=== PATIENT | female | born 1965 | race Caucasian/White ===

== ENCOUNTER 2018-03-17 06:38 | Inpatient (IN) | payer OTHER ==
--- NOTE | 2018-03-08 11:50 | HP ---
HISTORY AND PHYSICAL: DATE OF SURGERY: 03/17/18 DATE OF OFFICE VISIT: 03/04/18 SURGEON: Frieda Clinton MD * (DICTATED BY NII HOWARD) PROCEDURE: Right total knee arthroplasty. CHIEF COMPLAINT: Right knee pain. HISTORY OF PRESENT ILLNESS: Ms. Zepeda is a 53-year-old female with end- stage osteoarthritis of her right knee. She has failed conservative management and elected to proceed with a right total knee arthroplasty, which is scheduled for 03/17/[address] Clinton. PAST MEDICAL HISTORY: 1. Hypertension. 2. Diabetes. 3. History of hepatitis C. 4. Asthma. 5. Sleep apnea. PAST SURGICAL HISTORY: x3, lumbar diskectomy, cholecystectomy, and right knee arthroscopy. CURRENT MEDICATIONS: 1. Metformin 500 mg daily. 2. Ventolin HFA inhaler as needed. 3. Meloxicam daily. 4. Lisinopril/hydrochlorothiazide 20/12.5 mg daily. 5. Aleve as needed. 6. Multivitamin. ALLERGIES: No known drug allergies. FAMILY HISTORY: Stroke, coronary artery disease, asthma, and hypertension. SOCIAL HISTORY: She is a 53-year-old female. She lives with her boyfriend. She does not smoke or use drugs. Uses occasional alcohol. REVIEW OF SYSTEMS: A complete 14-point review of systems was reviewed with patient. It was positive for asthma, diabetes, and history of hepatitis C approximately 20 years ago. She denies history of DVT, PE, or anesthesia problems. PHYSICAL EXAMINATION GENERAL: She is well developed, well nourished, in no acute distress. VITAL SIGNS: She stands 5 feet 4 inches tall, weighs 235 pounds. Her blood pressure is 140/82, heart rate is 74. HEENT: Normocephalic, atraumatic. NECK: Supple. No palpable lymph nodes. PULMONARY: Lungs are clear to auscultation bilaterally. CARDIO: Regular rate and rhythm. Strong S1 and S2. ABDOMEN: Soft, nontender, and nondistended. NEUROLOGICAL: She is alert and oriented x3. Cranial nerves II through XII are intact. MUSCULOSKELETAL: Right lower extremity, the skin is intact. There are no open wounds or abrasions. There is some moderate joint effusion and tenderness over the medial and lateral joint line. Range of motion 10 to 120 degrees with patellofemoral crepitus. 5/5 lower extremity strength. 2+ dorsalis pedis pulses and intact sensation. ASSESSMENT AND PLAN: Ms. Zepeda is a 53-year-old female with end-stage osteoarthritis of her right knee. She has failed conservative management and elected to proceed with a right total knee arthroplasty, which is scheduled for 03/17/[address] Clinton discussed the risks and benefits of the surgery at today's visit. All of her questions were answered. She will follow up with Dr. Clinton 2 weeks after the surgery. NII HOWARD [id number]/[facility] #: [id number] [place]
[~2018-03-17 06:38] MED LIST: Buffered Lidocaine 0.9% SYRIN* 5 ML/SYR SYRINGE INTRADERM ONE; Famotidine TAB* 20 MG PO ONE; Metoclopramide IV* 5 MG/ML 2 ML VIAL IV SLOW PU ONE; Sodium Citrate/Citric Acid* 15 ML UDC PO ONE
[2018-03-17] MEDS ORDERED: ceFAZolin 2 GM PREMIX (*) 2 GM/50 ML BAG IVPB ONE (07:01)
[2018-03-17] MEDS ORDERED: Metoclopramide TAB* 10 MG ONE (07:01)
[2018-03-17] MEDS ORDERED: Famotidine TAB* 20 MG ONE (07:01)
[2018-03-17] MEDS ORDERED: Sodium Citrate/Citric Acid* 15 ML UDC ONE (07:01)
[2018-03-17] MEDS ORDERED: fentaNYL* 50 MCG/ML 2 ML VIAL (100 MCG VIAL) ONE (07:18)
[2018-03-17] MEDS ORDERED: Bupivacaine 0.5%* 50 ML VIAL ONE (07:18)
[2018-03-17] MEDS ORDERED: Midazolam* 1 MG/ML 2 ML VIAL (2 MG) ONE ×3 (07:18→09:46)
[2018-03-17] MEDS ORDERED: Metoclopramide IV* 5 MG/ML 2 ML VIAL ONE (07:38)
[2018-03-17] MEDS ORDERED: Morphine PF AMP (0.5MG/ML)* 5 MG/10 ML AMP ONE (07:45)
[2018-03-17] MEDS ORDERED: oxyCODONE TAB* 5 MG TAB PO PRN ×2 (08:21→08:22)
[2018-03-17] MEDS ORDERED: Ondansetron INJ* 2 MG/ML VIAL IV PRN ×2 (08:21→08:22)
[2018-03-17] MEDS ORDERED: Naloxone* 0.4 MG/ML 1 ML VIAL IV PRN ×2 (08:21→08:22)
[2018-03-17] MEDS ORDERED: Acetaminophen IV 1GM/100ML * 1,000 MG/100 ML VIAL IVPB ONE (08:21)
[2018-03-17] MEDS ORDERED: PROCHLORPERAZINE INJ 5 MG/ML 2 ML VIAL IV PRN (08:21)
[2018-03-17] MEDS ORDERED: diPHENhydraMINE IV* 50 MG/ML 1 ml VIAL (BENADRYL) IV PRN ×2 (08:21→08:22)
[2018-03-17] MEDS ORDERED: oxyCODONE/Acetamin 5/325 MG* TAB PO PRN ×2 (08:21→08:22)
[2018-03-17] MEDS ORDERED: HYDROmorphone INJ* 2 MG/ML CARPUJECT SYRINGE IV PRN (08:21)
[2018-03-17] MEDS ORDERED: fentaNYL* 50 MCG/ML 2 ML VIAL (100 MCG VIAL) IV PRN (08:21)
[2018-03-17] MEDS ORDERED: Acetaminophen TAB* 325 MG PO PRN ×3 (08:22→20:00)
[2018-03-17] MEDS ORDERED: Scopolamine 1.5 mg* PATCH TRANSDERM PRN (08:22)
[2018-03-17] MEDS ORDERED: EPHEDrine (Pressors)* 50 MG/ML VIAL IV PUSH PRN (08:26)
[2018-03-17] MEDS ORDERED: Lidocaine 2% PF * 5 ML VIAL ONE (08:29)
[2018-03-17] MEDS ORDERED: Propofol* 500 MG/50 ML BTL ONE (08:29)
[2018-03-17] MEDS ORDERED: Ketorolac INJ* 30 MG/ML 1 ML VIAL ONE (08:30)
[2018-03-17] MEDS ORDERED: Bupivacaine 0.5% PF 10 ML VIAL INJ ONE (08:30)
[2018-03-17] MEDS ORDERED: Ondansetron INJ* 2 MG/ML VIAL ONE (08:30)
[2018-03-17] MEDS ORDERED: Sterile Water for Inj* 10 ML ONE (08:30)
[2018-03-17] MEDS ORDERED: EPHEDrine (Pressors)* 50 MG/ML VIAL ONE (08:30)
[2018-03-17] MEDS ORDERED: Lidocaine 2% PF* 10 ML AMP ONE (08:30)
[2018-03-17] MEDS ORDERED: Ropivacaine* 300 MG in NS 0.9% 250 ML* 240 ML EPIDURAL SCH (09:00)
[2018-03-17] MEDS ORDERED: Magnesium Hydroxide LIQ* 30 ML UDC PO PRN (10:47)
[2018-03-17] MEDS ORDERED: Cyclobenzaprine TAB* 10 MG PO PRN (10:47)
[2018-03-17] MEDS ORDERED: diPHENhydraMINE IV* 50 MG/ML 1 ml VIAL (BENADRYL) ONE (10:53)
[2018-03-17] MEDS ORDERED: Acetaminophen IV 1GM/100ML * 100 ML ONE (10:56)
[2018-03-17] MEDS ORDERED: Albuterol HFA INHALER* 8 gm MDI INH PRN (10:57)
[2018-03-17] MEDS ORDERED: Nalbuphine* 20 MG/ML 1 ML VIAL ONE (11:19)
[2018-03-17] MEDS ORDERED: Dextrose 50% Syringe 50 ML* 25 GM/50 ML SYRINGE IV PUSH PRN (11:59)
[2018-03-17] MEDS ORDERED: Nalbuphine* 20 MG/ML 1 ML VIAL IV PRN (12:21)
--- NOTE | 2018-03-17 13:06 | RAD ---
INDICATION: Right total knee replacement COMPARISON: Preoperative film October 14, 2017 TECHNIQUE: Portable AP and crosstable lateral views were obtained. FINDINGS: There is interval right knee arthroplasty. The tibial component appears well seated. The femoral component may not be fully seated. There is a lucency along the superior margin. There is a nondisplaced, vertically oriented, periprosthetic fracture of the distal femoral metadiaphysis. There is no overlying cooling jacket. There are postsurgical soft tissue changes. IMPRESSION: NONDISPLACED PERIPROSTHETIC FRACTURE DISTAL FEMUR. THERE IS ALSO SOME CONCERN THAT THE FEMORAL COMPONENT IS NOT FULLY SEATED. FINDINGS CALLED TO THE OR.
--- NOTE | 2018-03-17 16:41 | RAD ---
Indication: Periprosthetic RIGHT femur fracture. RIGHT total knee replacement. Comparison: March 17, 2018 radiographs immediate postop. October 14, 2017 radiographs. Technique: Noncontrast CT RIGHT knee. Multiplanar reformation. Report: RIGHT total knee prosthesis in place. Based on correlation with the radiograph of the same date the femoral component does not appear fully seated against the distal metaphysis osteotomy site. There is incomplete sagittally oriented nondisplaced periprosthetic fracture extending from the distal diaphysis metaphysis junction of the femur to the level of the prosthesis involving the posterior cortex and subjacent medullary bone corresponding with the radiographic finding. Midline anterior surgical incision site. Typical immediate postoperative subcutaneous and intra-articular gas. Only minimal joint effusion. Surgical drain at the suprapatellar recess. IMPRESSION: 1. Based on correlation with the radiograph of the same date the femoral component does not appear fully seated against the distal metaphysis osteotomy site. 2. Incomplete sagittally oriented nondisplaced periprosthetic fracture extending from the distal diaphysis metaphysis junction of the femur to the level of the prosthesis involving the posterior cortex and subjacent medullary bone corresponding with the radiographic finding.
[2018-03-17] MEDS: ceFAZolin 1 GM in Dextrose (*) 1 GM/50 ML BAG IVPB SCH ×2 (16:45→23:53)
[2018-03-17] MEDS ORDERED: Warfarin TAB(*) 6 MG PO ONE (17:00)
[2018-03-17] MEDS ORDERED: metFORMIN* 500 MG TAB PO SCH (18:00)
[2018-03-17] MEDS: Insulin LISPRO* 1 UNITS UNIT SUBCUT SCH ×2 (18:11→21:42)
--- NOTE | 2018-03-17 20:12 | CONS ---
CONSULTATION REPORT: DATE OF CONSULT: 03/17/18 ATTENDING PHYSICIAN: Dr. Seymour (report dictated by Jyothi Christensen, LAUREN). REFERRING PHYSICIAN: Dr. Clinton. REASON FOR CONSULT: Co-medical management. HISTORY OF PRESENT ILLNESS: Ms. Zepeda is a 53-year-old female with end- stage osteoarthritis of her right knee, who was admitted today on 03/17/18 for a right total knee arthroplasty with Dr. Clinton. Hospital Medicine was asked to consult and co-medical manage. The patient has a past medical history of hypertension, type 2 diabetes, asthma, sleep apnea, and history of hepatitis C. The patient was seen and evaluated in the PACU where she is sitting up on the PACU stretcher, alert and oriented x3 with some mild noted drowsiness. She answers questions appropriately. She denies any current pain at this moment. She reports that she was recently diagnosed with diabetes within the last couple of months as it was identified during her preop evaluation. She feels that she has been tolerating the metformin well. She is to have close followup with her primary care provider in regards to this new diagnosis. In regards to the patient's hypertension, she reports that this is well controlled. Currently, the patient offers no complaints. Denies any shortness of breath or chest pain. Denies nausea or vomiting. PAST MEDICAL HISTORY: 1. Hypertension. 2. Type 2 diabetes, recently diagnosed, on metformin. 3. History of hepatitis C. 4. Asthma. 5. Sleep apnea. 6. Obesity. PAST SURGICAL HISTORY: 1. x3. 2. Lumbar diskectomy. 3. Cholecystectomy. 4. Right knee arthroscopy. MEDICATIONS: Home medications: 1. Metformin 500 mg p.o. daily. 2. Ventolin HFA inhaler p.r.n. 3. Meloxicam daily. 4. Lisinopril/hydrochlorothiazide 20/12.5 mg p.o. daily. 5. Aleve p.r.n. 6. Multivitamin. Current medications reviewed and appreciated in the patient's electronic medical record. ALLERGIES: No known allergies. FAMILY HISTORY: History of coronary artery disease, stroke, asthma, hypertension. SOCIAL HISTORY: The patient currently lives with her boyfriend. She denies any tobacco abuse or recreational drug use. She uses rare to occasional alcohol. REVIEW OF SYSTEMS: A 14-point review of systems was performed. All the pertinent positives and negatives are mentioned in the history of present illness. Otherwise negative. PHYSICAL EXAM: Vital Signs: Temperature 96.8, heart rate 80, respirations 16, O2 sat 97% on 3 L nasal cannula, blood pressure 106/55. General Appearance: Obese 53- year-old female, sitting up on the PACU stretcher, alert and oriented x3, slightly drowsy, in no acute distress, answers questions appropriately. HEENT: Head is normocephalic, atraumatic. Pupils are equal and reactive to light. Oropharynx is clear. Moist mucous membranes. Cardiac: S1, S2. Regular rate and rhythm. No murmur, rub, or gallop appreciated. No lower extremity edema noted. Lungs: Clear to auscultation bilaterally, slightly diminished most likely secondary to obesity. Abdomen: Obese, soft, nontender, nondistended. Normal bowel sounds throughout. Extremities: Right lower extremity has intact Cryo unit over her postsurgical knee. Good sensation to feet bilaterally. Neuro: Alert and oriented x3. No focal deficits noted. ASSESSMENT AND PLAN: Ms. Zepeda is a 53-year-old female with a past medical history of end-stage osteoarthritis of her right knee, obesity, hypertension, type 2 diabetes, asthma, sleep apnea and history of hepatitis C, who presented today and underwent a right total knee arthroplasty with Dr. Clinton. Hospital Medicine has been asked to co-medical manage. 1. Status post right total knee arthroplasty, postop day 0. Disposition per orthopedic team. Continue pain management. Bowel regimen. PT/OT. 2. Hypertension. The patient takes lisinopril and hydrochlorothiazide in a combination pill. I plan to hold these on the postop day as her blood pressures are on the softer side. These should be re-added to her regimen once her blood pressures have come up a little bit and are stable. 3. Type 2 diabetes. Hold metformin. Start lispro sliding scale a.c. and h.s. with fingerstick blood glucose monitoring a.c. and h.s. It is noted that the patient's hemoglobin A1c is 8.4 on 02/24/18. 4. Asthma. The patient reports well controlled. Continue HFA Ventolin inhaler p.r.n. 5. Sleep apnea. The patient may use her own machine. 6. DVT prophylaxis: Per ortho team. The ortho team has ordered Coumadin with a Lovenox bridge. 7. Code status: Full code. TIME SPENT: Approximately 45 minutes were spent on this consult. JYOTHI CHRISTENSEN, PICK UP ATTENDANT [id number]/[facility] #: [id number] [place]
[2018-03-17] MEDS: Magnesium Hydroxide LIQ* 30 ML UDC PO SCH (21:33)
[2018-03-17] MEDS: Docusate CAP* 100 MG PO SCH (21:49)
[2018-03-18] MEDS ORDERED: Scopolamine PATCH Remove* 1 NOTE MISC PATCH OFF ONE (00:15)
[2018-03-18] MEDS ORDERED: diPHENhydraMINE IV* 50 MG/ML 1 ml VIAL (BENADRYL) IV PRN (00:16)
[2018-03-18] MEDS ORDERED: Ondansetron INJ* 2 MG/ML SYRINGE (from 40/20 VIAL) IV PRN (00:16)
--- NOTE | 2018-03-18 01:41 | CONS ---
PROGRESS NOTE: DATE OF PROGRESS NOTE: 03/17/18 HISTORY OF PRESENT ILLNESS: Ms. Zepeda is a 53-year-old female who had a right total knee arthroplasty today, which was uncomplicated with no abnormal intraoperative findings. Postoperatively, the patient had x-rays in the PACU and was noted to have a periprosthetic fracture of the distal femur. This was a vertical essentially nondisplaced fracture. I immediately explained this to the patient and ordered a CT scan of the femur to evaluate implant stability and whether this fracture was spiral or involved more than a single cortex. Based on the CT findings, this is posterior unicortical essentially nondisplaced fracture. I once again discussed the results of the CT with the patient. I offered her both nonoperative and operative treatment plans. She understands that the most stable fixation of the fracture would be obtained by surgical intervention. She does not wish to have any further surgical intervention. She wishes to protect weightbearing and limit her range of motion at this time, although we will have to be carefully with the aggressiveness of her rehab process. I do believe we can heal this fracture with minimal intervention. She understands there is a risk of the fracture propagating or becoming worse. For now, we will make her 25% weightbearing on the right lower extremity. She will be in a knee immobilizer while in bed. She will not flex more than 90 degrees. She will not have aggressive range of motion intervention by physical therapy. The patient understands the treatment plans, risks, and benefits. We will proceed with nonoperative treatment of this minimally displaced distal periprosthetic fracture per the patient's wishes. We will watch the patient closely and monitor with serial radiographs. [id number]/[facility] #: [id number] [place]
[2018-03-18 05:52] LABS: Hematocrit 30 % (35-47); Mean Platelet Volume 8.7 um3 (7.4-10.4); Platelet Count 220 10^3/ul (150-450)
[2018-03-18 05:57] LABS: INR 1.17 (0.77-1.02)
[2018-03-18] MEDS ORDERED: Morphine VIAL* 4 MG/ML VIAL (1 ml vial) IV PRN (06:00)
[2018-03-18] MEDS ORDERED: oxyCODONE/Acetamin 5/325 MG* TAB PO PRN (06:00)
[2018-03-18 06:09] LABS: EGFR Non-African American 92.4 (>60)
--- NOTE | 2018-03-18 06:40 | OP ---
DATE OF OPERATION: 03/17/18 - ROOM #343 DATE OF : 67 SURGEON: Frieda Clinton MD INSIDE WIRER: NII Guerra. Osiris did help throughout the procedure with preparation of the leg, wound retraction, manipulation of the knee and wound closure. ANESTHESIOLOGIST: Dr. Mays. ANESTHESIA: Spinal. PRE-OP DIAGNOSIS: Severe end-stage degenerative osteoarthritis of the right knee joint. POST-OP DIAGNOSIS: Severe end-stage degenerative osteoarthritis of the right knee joint. OPERATIVE PROCEDURE: Right total knee arthroplasty. ESTIMATED BLOOD LOSS: 300 cc. TOURNIQUET TIME: 45 minutes. COMPLICATIONS: None. SPECIMEN: Cartilage and bone from the right knee sent to Pathology. HARDWARE USED: Cemented [employer] total knee arthroplasty hardware. For the cement, 2 packages of Simplex bone cement. For the femur, a right size 3 posterior stabilized Legion Oxinium femoral component. For the tibia, a size 2 Bambi II right tibial baseplate. For the insert, 13-mm posterior stabilized articular insert size 1/2 and for the patella 29-mm, 7.5 thickness, 3 -peg all poly patella. BRIEF HISTORY/INDICATIONS: Ms. Zepeda is a 53-year-old female with years of increasingly severe right knee pain. Radiograph showed [id number] arthritis. She failed conservative treatment with antiinflammatories, pain medication, intraarticular injection and physical therapy. Due to continued pain, decreased quality of life, the patient elected to undergo right total knee arthroplasty. Informed consent was obtained from the patient. She understood the risk of surgery included but were not limited to bleeding, infection, damage to nearby structures, continued pain, need for further surgery, intraoperative fracture, nerve palsy, hardware failure or loosening, knee stiffness, loss of motion, stroke, heart attack, blood clot and . The patient wished to proceed. INTRAOPERATIVE FINDINGS: Intraoperatively, the patient was noted to have tricompartmental severe end-stage arthritis with full thickness loss of cartilage. DESCRIPTION OF PROCEDURE: Ms. Zepeda was identified in the preanesthesia unit. Her right lower extremity was marked as the correct operative site. Informed consent was signed and placed in the chart. The patient was taken to the operating room and placed under spinal anesthesia. A Patel catheter was placed. Tourniquet was placed on the right thigh. Right lower extremity was prepped and draped in the usual sterile fashion. Preop time-out was made to correctly identify the patient, side and site. Appropriate perioperative antibiotics were given within 1 hour of incision. Tourniquet was inflated. Total tourniquet time for this procedure was 45 minutes. A 12 cm midline incision was made with a 10 blade and carried down to the extensor mechanism. A new 10-blade was used to make a standard medial parapatellar arthrotomy. The patella was subluxed laterally. Electrocautery was used to subperiosteally elevate the soft tissue off the superomedial tibia to the mid sagittal plane. The knee was flexed up. Anterior horn of the lateral meniscus and ACL were sharply released. A drill was used to enter the distal femur. Intramedullary distal femoral cutting guide was pinned on the distal femur. Oscillating saw was used to make the distal femoral cut. External rotation guide was pinned on the distal femur. Distal femur was sized to a size 3. Size 3 multi-cutting jig was pinned on the distal femur. The oscillating saw was used to make the appropriate 4 chamfer cuts. The PCL was completely released. Tibia was subluxed anteriorly. Extramedullary tibial cutting guide was pinned on the proximal tibia. Oscillating saw was used to make a proximal tibial cut perpendicular to the mechanical axis of the tibia. The bone was carefully removed. The knee was brought out into full extension. A spacer block had good fit with the knee in full extension. Medial and lateral ligaments were well balanced. Flexion and extension gap was well balanced. The knee was flexed up. Lamina heating fixture tender was placed both medially and laterally. Any remaining meniscus was removed using electrocautery. A curved osteotome was used to remove any posterior osteophytes. Tibial tray and drop shirley once again confirmed a satisfactory tibial cut. A right size 3 femoral component was impacted on to the femur and had excellent fit. The box for the posterior stabilized implant was prepared using a reamer and box cut osteotome. A size 2 tibial tray trial with an 11 mm insert was placed and the knee was taken through range of motion. The knee had full extension to 130 degrees of flexion with satisfactory patellofemoral tracking. The patella was everted. A 7 mm of patellar bone and cartilage was carefully removed using an oscillating saw. Patella was sized to a size 29. Three peg holes were drilled through the size 29 guide. A 29 trial patella with 7.5 thickness was placed and the knee was taken to range of motion. There was satisfactory patellofemoral tracking. All trials were removed. The tibia was subluxed anteriorly and sized to a size 2. Proximal tibia was prepared using a size 2 keel punch. All bony cut surfaces were copiously irrigated with sterile saline and dried. Final implants were cemented into place starting with the tibia, followed by the femur and last the patella. A 13 mm insert trial was placed and the knee was brought out into full extension. The tourniquet was turned down at 45 minutes. Electrocautery was used to obtain meticulous hemostasis. The knee was copiously irrigated with sterile saline. Once the cement had fully cured, the insert trial was removed. Any excess cement was removed from around the capsule and hardware. Final insert chosen was a 13 mm size 1-2 posterior stabilized articular insert. This was locked into position on the tibial tray. Stability of the insert was checked and rechecked and noted to be stable. The knee was once again copiously irrigated with sterile saline. The extensor mechanism was closed using interrupted #1 Vicryl over a medium Hemovac drain. The rest of the incision was closed in a layered fashion using 0 and 2-0 Vicryls. Skin was closed using running 3-0 nylon suture. Sterile Xeroform, 4x4s , and Webril were used to cover the incision. Remigio wrap and cold pack were placed over this. The patient's anesthesia was reversed without difficulty. She was taken to the PACU in stable condition. Intended weightbearing will be weightbearing as tolerated. Intended DVT prophylaxis will be Coumadin with a Lovenox bridge. [id number]/[facility] #: [id number] [facility]
[2018-03-18] MEDS: oxyCODONE/Acetamin 5/325 MG* TAB PO PRN ×4 (07:03→20:00)
[2018-03-18] MEDS: Docusate CAP* 100 MG PO SCH ×2 (08:12→20:00)
[2018-03-18] MEDS: Insulin LISPRO* 1 UNITS UNIT SUBCUT SCH ×4 (08:12→20:09)
[2018-03-18] MEDS: Vitamin THERAPEUTIC TAB PO SCH (08:12)
[2018-03-18] MEDS: ceFAZolin 1 GM in Dextrose (*) 1 GM/50 ML BAG IVPB SCH (08:12)
[2018-03-18] MEDS: Magnesium Hydroxide LIQ* 30 ML UDC PO SCH ×2 (08:22→20:00)
[2018-03-18] MEDS ORDERED: Hydrochlorothiazide TAB* 25 MG PO SCH (09:00)
[2018-03-18] MEDS ORDERED: Lisinopril TAB* 10 MG PO SCH (09:00)
[2018-03-18] MEDS: oxyCODONE TAB* 5 MG TAB PO PRN ×4 (09:06→22:55)
--- NOTE | 2018-03-18 09:41 | PN ---
Progress Note - Progress Note Date of Service: 03/18/18 SOAP: Subjective: 53 y/o female s/p R TKA 03/17/[address] Clinton. Patient with increased apin, worked with PT this AM, understands restrictions due to periprothetic fracture. No qeustions re: surgery. VSS, afebrile overnight. Objective: General- Well appearing, NAD, AO, resting in bed in pain MSK- RLE- DF/PF = b/l, PT 2+, negative homans sign, Dressing intact, no induration/ erythema noted. Drain removed. SITLT Assessment: Stable S/P R TKA 03/17/[address] Clinton complicated by post-op periprostetic fracture Plan: - DVT prophylaxis- lovenox, coumadin. - Continue PT/ OT- NOn-aggressive PT- gentle ROM, do not flex greater than 90 degrees, Knee immobilizer on at all times while sleeping/ resting. 25% weight bearing. Discussed with PT, aware of restrictions, limitations. - Follow up with Dr. Clinton within 10-14 days - H&H - Stable - post-op IV ABX- Completed. - Knee immoblizer on while sleeping at night and day to prevent displacement of fracture - Likely rehab at D/C Vital Signs Temp 98.4 F 03/18/18 11:32 Pulse 77 03/18/18 11:32 Resp 16 03/18/18 14:20 BP 130/61 03/18/18 11:32 Pulse Ox 99 03/18/18 11:32 Intake & Output 03/17/18 03/18/18 03/18/18 18:59 06:59 18:59 Intake Total 2990 1260 1940 Output Total 160 700 400 Balance 2830 560 1540 Weight 105.687 kg Intake: IV Fluids 2300 550 840 ANCEF 2 GMS 50 LR 2250 550 785 abx 55 IVPB 450 50 LR 395 abx 55 50 Oral 130 975 7577 Output: Urine 100 100 Patel 60 700 300 Other: # Voids 1 Acetaminophen (Tylenol Tab*) 650 mg PO Q4H PRN PRN Reason: PAIN OR TEMPERATURE Albuterol (Ventolin Hfa Inhaler*) 2 puff INH Q4H PRN PRN Reason: SOB/WHEEZING Cyclobenzaprine HCl (Flexeril Tab*) 5 mg PO TID PRN PRN Reason: SPASMS Dextrose (D50w Syringe 50 Ml*) 12.5 gm IV PUSH .FOR FS < 60 - SS PRN PRN Reason: FS < 60 Diphenhydramine HCl (Benadryl Iv*) 25 mg IV Q6H PRN PRN Reason: itching or insomnia Last Admin: 03/18/18 08:22 Dose: 25 mg Docusate Sodium (Colace Cap*) 100 mg PO BID [facility] Last Admin: 03/18/18 08:12 Dose: 100 mg Enoxaparin Sodium (Lovenox(*)) 40 mg SUBCUT Q24H [facility] Last Admin: 03/18/18 12:24 Dose: 40 mg Ropivacaine 300 mg/ Sodium (Chloride) 300 mls @ 0 mls/hr EPIDURAL PER RATE [facility] ; Per Protocol PRN Reason: Protocol Last Admin: 03/17/18 11:10 Dose: 10 mls/hr Lactated Ringer's (Lactated Ringers 1000 Ml Bag*) 1,000 mls @ 100 mls/hr IV PER RATE [facility] Last Admin: 03/18/18 00:44 Dose: 100 mls/hr Insulin Human Lispro (Humalog*) 0 units SUBCUT ACHS [facility] PRN Reason: Protocol Last Admin: 03/18/18 12:30 Dose: 6 units Lactulose (Lactulose*) 30 ml PO Q6H PRN PRN Reason: constipation Magnesium Hydroxide (Milk Of Magnesia Liq*) 30 ml PO BID [facility] Last Admin: 03/18/18 08:22 Dose: 30 ml Magnesium Hydroxide (Milk Of Magnesia Liq*) 30 ml PO Q6H PRN PRN Reason: constipation Morphine Sulfate (Morphine Vial*) 2 mg IV Q2H PRN PRN Reason: PAIN - UNCONTROLLED Last Admin: 03/18/18 12:30 Dose: 2 mg Multivitamins (Theragran Tab*) 1 tab PO DAILY [facility] Last Admin: 03/18/18 08:12 Dose: 1 tab Ondansetron HCl (Zofran Inj*) 4 mg IV Q6H PRN PRN Reason: nausea Oxycodone HCl (Roxycodone Tab*) 10 mg PO Q4H PRN PRN Reason: PAIN - SEVERE Last Admin: 03/18/18 13:19 Dose: 10 mg Oxycodone/Acetaminophen (Percocet 5/325 Tab*) 2 tab PO Q4H PRN PRN Reason: PAIN - MODERATE TO SEVERE Last Admin: 03/18/18 11:21 Dose: 2 tab Oxycodone/Acetaminophen (Percocet 5/325 Tab*) 1 tab PO Q4H PRN PRN Reason: PAIN - MODERATE Pharmacy Profile Note (Coumadin Daily Reminder*) 0 note FOLLOW UP 1700 CARMELLA Last Admin: 03/17/18 16:50 Dose: 1 note Warfarin Sodium (Coumadin Tab(*)) 5 mg PO ONCE@1700 ONE PRN Reason: Protocol Stop: 03/18/18 17:01 Laboratory Results - last 24 hr 03/17/18 03/17/18 03/18/18 16:38 21:40 05:19 Hgb 10.0 L Hct 30 L Plt Count 220 MPV 8.7 INR (Anticoag Therapy) Sodium Potassium Chloride Carbon Dioxide Anion Gap BUN Creatinine Est GFR ( Amer) Est GFR (Non-Af Amer) BUN/Creatinine Ratio Glucose POC Glucose (mg/dL) 144 H 93 Calcium 03/18/18 03/18/18 03/18/18 05:19 05:19 12:26 Hgb Hct Plt Count MPV INR (Anticoag Therapy) 1.17 H Sodium 135 L Potassium 4.1 Chloride 101 Carbon Dioxide 31 Anion Gap 3 BUN 9 Creatinine 0.67 Est GFR ( Amer) 118.9 Est GFR (Non-Af Amer) 92.4 BUN/Creatinine Ratio 13.4 Glucose 169 H POC Glucose (mg/dL) 244 H Calcium 8.4 L
[2018-03-18] MEDS: Enoxaparin(*) 40 MG/0.4 ML SYR SUBCUT SCH (12:24)
[2018-03-18] MEDS ORDERED: HYDROmorphone INJ* 2 MG/ML CARPUJECT SYRINGE ONE (13:12)
--- NOTE | 2018-03-18 15:51 | PN ---
Subjective Date of Service: 03/18/18 Interval History: c/o right knee pain. denies chest pain or shortness of breath. denies fever or chills, denies abd pain , n/v/d. Family History: Unchanged from Admission Social History: Unchanged from Admission Past Medical History: Unchanged from Admission Objective Active Medications: Acetaminophen (Tylenol Tab*) 650 mg PO Q4H PRN PRN Reason: PAIN OR TEMPERATURE Albuterol (Ventolin Hfa Inhaler*) 2 puff INH Q4H PRN PRN Reason: SOB/WHEEZING Cyclobenzaprine HCl (Flexeril Tab*) 5 mg PO TID PRN PRN Reason: SPASMS Dextrose (D50w Syringe 50 Ml*) 12.5 gm IV PUSH .FOR FS < 60 - SS PRN PRN Reason: FS < 60 Diphenhydramine HCl (Benadryl Iv*) 25 mg IV Q6H PRN PRN Reason: itching or insomnia Last Admin: 03/18/18 08:22 Dose: 25 mg Docusate Sodium (Colace Cap*) 100 mg PO BID [facility] Last Admin: 03/18/18 08:12 Dose: 100 mg Enoxaparin Sodium (Lovenox(*)) 40 mg SUBCUT Q24H [facility] Last Admin: 03/18/18 12:24 Dose: 40 mg Ropivacaine 300 mg/ Sodium (Chloride) 300 mls @ 0 mls/hr EPIDURAL PER RATE [facility] ; Per Protocol PRN Reason: Protocol Last Admin: 03/17/18 11:10 Dose: 10 mls/hr Lactated Ringer's (Lactated Ringers 1000 Ml Bag*) 1,000 mls @ 100 mls/hr IV PER RATE [facility] Last Admin: 03/18/18 00:44 Dose: 100 mls/hr Insulin Human Lispro (Humalog*) 0 units SUBCUT ACHS [facility] PRN Reason: Protocol Last Admin: 03/18/18 12:30 Dose: 6 units Lactulose (Lactulose*) 30 ml PO Q6H PRN PRN Reason: constipation Magnesium Hydroxide (Milk Of Magnesia Liq*) 30 ml PO BID [facility] Last Admin: 03/18/18 08:22 Dose: 30 ml Magnesium Hydroxide (Milk Of Magnesia Liq*) 30 ml PO Q6H PRN PRN Reason: constipation Morphine Sulfate (Morphine Vial*) 2 mg IV Q2H PRN PRN Reason: PAIN - UNCONTROLLED Last Admin: 03/18/18 12:30 Dose: 2 mg Multivitamins (Theragran Tab*) 1 tab PO DAILY [facility] Last Admin: 03/18/18 08:12 Dose: 1 tab Ondansetron HCl (Zofran Inj*) 4 mg IV Q6H PRN PRN Reason: nausea Oxycodone HCl (Roxycodone Tab*) 10 mg PO Q4H PRN PRN Reason: PAIN - SEVERE Last Admin: 03/18/18 13:19 Dose: 10 mg Oxycodone/Acetaminophen (Percocet 5/325 Tab*) 2 tab PO Q4H PRN PRN Reason: PAIN - MODERATE TO SEVERE Last Admin: 03/18/18 11:21 Dose: 2 tab Oxycodone/Acetaminophen (Percocet 5/325 Tab*) 1 tab PO Q4H PRN PRN Reason: PAIN - MODERATE Pharmacy Profile Note (Coumadin Daily Reminder*) 0 note FOLLOW UP 1700 [facility] Last Admin: 03/17/18 16:50 Dose: 1 note Warfarin Sodium (Coumadin Tab(*)) 5 mg PO ONCE@1700 ONE PRN Reason: Protocol Stop: 03/18/18 17:01 Vital Signs - 8 hr 03/18/18 03/18/18 03/18/18 07:57 08:00 08:22 Temperature 99.0 F Pulse Rate 88 Respiratory 18 16 16 Rate Blood Pressure 117/59 (mmHg) O2 Sat by Pulse 96 Oximetry 03/18/18 03/18/18 03/18/18 09:06 11:21 11:32 Temperature 98.4 F Pulse Rate 77 Respiratory 16 16 18 Rate Blood Pressure 130/61 (mmHg) O2 Sat by Pulse 99 Oximetry 03/18/18 03/18/18 03/18/18 12:30 13:19 13:20 Temperature Pulse Rate Respiratory 20 16 16 Rate Blood Pressure (mmHg) O2 Sat by Pulse Oximetry 03/18/18 14:20 Temperature Pulse Rate Respiratory 16 Rate Blood Pressure (mmHg) O2 Sat by Pulse Oximetry Oxygen Devices in Use Now: Nasal Cannula Appearance: appear moderately uncomfortable resting in bed Eyes: No Scleral Icterus Ears/Nose/Mouth/Throat: Clear Oropharnyx, Mucous Membranes Moist Neck: NL Appearance and Movements; NL JVP, Trachea Midline Respiratory: Symmetrical Chest Expansion and Respiratory Effort, Clear to Auscultation Cardiovascular: NL Sounds; No Murmurs; No JVD, No Edema Abdominal: NL Sounds; No Tenderness; No Distention Extremities: No Edema, No Clubbing, Cyanosis Skin: No Rash or Ulcers Neurological: Alert and Oriented x 3 Nutrition: Taking PO's Result Diagrams: 03/18/18 05:19 03/18/18 05:19 Assess/Plan/Problems-Billing Assessment: Ms. Zepeda is a 53 y.o female who has a hx of hypertension and DM who presented to the hospital for an elective right knee arthroplasty. - Patient Problems (1) Status post right knee replacement Current Visit: Yes Status: Acute Code(s): Z96.651 - PRESENCE OF RIGHT ARTIFICIAL KNEE JOINT SNOMED Code(s): 700740160 Comment: management per orthopedics PT/OT per orthopedics pain management per orthopedics (2) Hypertension Current Visit: Yes Status: Acute Code(s): I10 - ESSENTIAL (PRIMARY) HYPERTENSION SNOMED Code(s): 97162877 Comment: Will hold lisinopril at this time - will resume when BP is stable (3) Diabetes Current Visit: Yes Status: Acute Code(s): E11.9 - TYPE 2 DIABETES MELLITUS WITHOUT COMPLICATIONS SNOMED Code(s): 64202015 Comment: BG 144-244 Fingerstick Lispro sliding scale (4) DVT prophylaxis Current Visit: Yes Status: Acute Code(s): OME9412 - SNOMED Code(s): 872119550 Comment: As per orthopedics (5) Full code status Current Visit: Yes Status: Acute Code(s): Z78.9 - OTHER SPECIFIED HEALTH STATUS SNOMED Code(s): 042351707 Status and Disposition: inpatient - discharge when cleared by orthopedics
[2018-03-18] MEDS ORDERED: Warfarin TAB(*) 5 MG PO ONE (17:00)
[2018-03-19] MEDS: oxyCODONE/Acetamin 5/325 MG* TAB PO PRN ×4 (02:09→20:35)
[2018-03-19] MEDS: oxyCODONE TAB* 5 MG TAB PO PRN ×4 (05:03→23:45)
[2018-03-19 05:46] LABS: Hematocrit 31 % (35-47); Hemoglobin 10.4 g/dl (12.0-16.0); Mean Platelet Volume 8.6 um3 (7.4-10.4); Platelet Count 268 10^3/ul (150-450)
[2018-03-19 05:52] LABS: INR 1.32 (0.77-1.02)
[2018-03-19] MEDS: Insulin LISPRO* 1 UNITS UNIT SUBCUT SCH ×4 (08:16→21:49)
[2018-03-19] MEDS: Magnesium Hydroxide LIQ* 30 ML UDC PO SCH ×2 (08:17→20:42)
[2018-03-19] MEDS: Vitamin THERAPEUTIC TAB PO SCH (08:18)
[2018-03-19] MEDS: Docusate CAP* 100 MG PO SCH ×2 (08:18→20:36)
--- NOTE | 2018-03-19 09:13 | PN ---
Progress Note - Progress Note Date of Service: 03/19/18 SOAP: Subjective: Pt is doing well. She reports 7/10 pain which is slowly improving. She denies CP/SOB, or F/C. She has been compliant with 25% weight bearing. Objective: PE: 53 y/o WDWN in NAD, A&O x3, sitting comfortably in chair RLE- dressing changed, inc c/d/i with no sign of infection, +DF/PF ankle, calf soft NT, NVI Vital Signs Temp Pulse Resp BP Pulse Ox 97.7 F 86 18 153/73 96 03/19/18 07:29 03/19/18 07:29 03/19/18 10:08 03/19/18 07:29 03/19/18 08:22 Laboratory Results - last 24 hr 03/18/18 03/18/18 03/18/18 12:26 17:53 20:06 Hgb Hct Plt Count MPV INR (Anticoag Therapy) POC Glucose (mg/dL) 244 H 160 H 121 H 03/19/18 03/19/18 03/19/18 05:29 05:29 07:19 Hgb 10.4 L Hct 31 L Plt Count 268 MPV 8.6 INR (Anticoag Therapy) 1.32 H POC Glucose (mg/dL) 222 H Assessment: Stable S/P R TKA 03/17/[address] Clinton complicated by post-op periprosthetic fracture. POD 2 Plan: - DVT prophylaxis- lovenox, coumadin- 8 mg tonight. - Continue PT/ OT- Non-aggressive PT- gentle ROM, do not flex greater than 90 degrees, Knee immobilizer on at all times while sleeping/ resting. 25% weight bearing. Discussed with PT, aware of restrictions, limitations. - Follow up with Dr. Clinton within 10-14 days - Knee immobilizer on while sleeping at night and day to prevent displacement of fracture - Dc tomorrow to home with VNS vs [facility] Wednesday depending on pain control and progress with PT
[2018-03-19] MEDS: Enoxaparin(*) 40 MG/0.4 ML SYR SUBCUT SCH (11:49)
[2018-03-19] MEDS ORDERED: Lisinopril/HCTZ 20/25(NF) TAB PO SCH (17:00)
[2018-03-19] MEDS ORDERED: Warfarin TAB(*) 4 MG PO ONE (17:00)
--- NOTE | 2018-03-19 17:14 | PN ---
Subjective Date of Service: 03/19/18 Interval History: continue to c/o right knee pain. Denies any chest pain or shortness of breath. Denies abd pain n/v. Family History: Unchanged from Admission Social History: Unchanged from Admission Past Medical History: Unchanged from Admission Objective Active Medications: Acetaminophen (Tylenol Tab*) 650 mg PO Q4H PRN PRN Reason: PAIN OR TEMPERATURE Albuterol (Ventolin Hfa Inhaler*) 2 puff INH Q4H PRN PRN Reason: SOB/WHEEZING Cyclobenzaprine HCl (Flexeril Tab*) 5 mg PO TID PRN PRN Reason: SPASMS Dextrose (D50w Syringe 50 Ml*) 12.5 gm IV PUSH .FOR FS < 60 - SS PRN PRN Reason: FS < 60 Diphenhydramine HCl (Benadryl Iv*) 25 mg IV Q6H PRN PRN Reason: itching or insomnia Last Admin: 03/18/18 08:22 Dose: 25 mg Docusate Sodium (Colace Cap*) 100 mg PO BID [facility] Last Admin: 03/19/18 08:18 Dose: 100 mg Enoxaparin Sodium (Lovenox(*)) 40 mg SUBCUT Q24H [facility] Last Admin: 03/19/18 11:49 Dose: 40 mg Hydrochlorothiazide (Hydrodiuril Tab*) 25 mg PO DAILY [facility] Ropivacaine 300 mg/ Sodium (Chloride) 300 mls @ 0 mls/hr EPIDURAL PER RATE [facility] ; Per Protocol PRN Reason: Protocol Last Admin: 03/17/18 11:10 Dose: 10 mls/hr Lactated Ringer's (Lactated Ringers 1000 Ml Bag*) 1,000 mls @ 100 mls/hr IV PER RATE [facility] Last Admin: 03/18/18 00:44 Dose: 100 mls/hr Insulin Human Lispro (Humalog*) 0 units SUBCUT ACHS [facility] PRN Reason: Protocol Last Admin: 03/19/18 12:45 Dose: 6 units Lactulose (Lactulose*) 30 ml PO Q6H PRN PRN Reason: constipation Lisinopril (Prinivil Tab*) 20 mg PO DAILY [facility] Magnesium Hydroxide (Milk Of Magnesia Liq*) 30 ml PO BID [facility] Last Admin: 03/19/18 08:17 Dose: 30 ml Magnesium Hydroxide (Milk Of Magnesia Liq*) 30 ml PO Q6H PRN PRN Reason: constipation Morphine Sulfate (Morphine Vial*) 2 mg IV Q2H PRN PRN Reason: PAIN - UNCONTROLLED Last Admin: 03/18/18 12:30 Dose: 2 mg Multivitamins (Theragran Tab*) 1 tab PO DAILY [facility] Last Admin: 03/19/18 08:18 Dose: 1 tab Ondansetron HCl (Zofran Inj*) 4 mg IV Q6H PRN PRN Reason: nausea Oxycodone HCl (Roxycodone Tab*) 10 mg PO Q4H PRN PRN Reason: PAIN - SEVERE Last Admin: 03/19/18 11:47 Dose: 10 mg Oxycodone/Acetaminophen (Percocet 5/325 Tab*) 2 tab PO Q4H PRN PRN Reason: PAIN - MODERATE TO SEVERE Last Admin: 03/19/18 14:36 Dose: 2 tab Oxycodone/Acetaminophen (Percocet 5/325 Tab*) 1 tab PO Q4H PRN PRN Reason: PAIN - MODERATE Pharmacy Profile Note (Coumadin Daily Reminder*) 0 note FOLLOW UP 1700 [facility] Last Admin: 03/18/18 17:53 Dose: 1 note Vital Signs - 8 hr 03/19/18 03/19/18 03/19/18 10:08 11:25 11:47 Temperature 98.1 F Pulse Rate 86 Respiratory 18 17 20 Rate Blood Pressure 139/64 (mmHg) O2 Sat by Pulse 98 Oximetry 03/19/18 03/19/18 03/19/18 14:36 15:48 16:00 Temperature 98.9 F Pulse Rate 80 Respiratory 18 18 Rate Blood Pressure 150/74 (mmHg) O2 Sat by Pulse 96 96 Oximetry Oxygen Devices in Use Now: Nasal Cannula Appearance: appears comfortable sitting in bed Eyes: No Scleral Icterus Ears/Nose/Mouth/Throat: Mucous Membranes Moist Neck: NL Appearance and Movements; NL JVP, Trachea Midline Respiratory: Symmetrical Chest Expansion and Respiratory Effort, Clear to Auscultation Cardiovascular: NL Sounds; No Murmurs; No JVD, No Edema Abdominal: NL Sounds; No Tenderness; No Distention Extremities: No Clubbing, Cyanosis, - - dressing intact to right knee, mild swelling Skin: No Rash or Ulcers Neurological: Alert and Oriented x 3, NL Gait, NL Muscle Strength and Tone Nutrition: Taking PO's Result Diagrams: 03/19/18 05:29 03/18/18 05:19 Assess/Plan/Problems-Billing Assessment: Ms. Zepeda is a 53 y.o female who has a hx of hypertension and DM who presented to the hospital for an elective right knee arthroplasty. - Patient Problems (1) Status post right knee replacement Current Visit: Yes Status: Acute Code(s): Z96.651 - PRESENCE OF RIGHT ARTIFICIAL KNEE JOINT SNOMED Code(s): 961882036 Comment: management per orthopedics PT/OT per orthopedics pain management per orthopedics (2) Hypertension Current Visit: Yes Status: Acute Code(s): I10 - ESSENTIAL (PRIMARY) HYPERTENSION SNOMED Code(s): 86866775 Comment: Will resume lisinopril/HCTZ - SBP 133-153 - will continue to monitor BP (3) Diabetes Current Visit: Yes Status: Acute Code(s): E11.9 - TYPE 2 DIABETES MELLITUS WITHOUT COMPLICATIONS SNOMED Code(s): 15003655 Comment: BG 144-244 Fingerstick Lispro sliding scale (4) DVT prophylaxis Current Visit: Yes Status: Acute Code(s): EQX9043 - SNOMED Code(s): 500774542 Comment: As per orthopedics (5) Full code status Current Visit: Yes Status: Acute Code(s): Z78.9 - OTHER SPECIFIED HEALTH STATUS SNOMED Code(s): 916573430 Status and Disposition: inpatient - discharge when cleared by orthopedics
[2018-03-19] MEDS: Lisinopril TAB* 10 MG PO SCH (17:24)
[2018-03-19] MEDS: Hydrochlorothiazide TAB* 25 MG PO SCH (17:24)
[2018-03-20] MEDS: oxyCODONE/Acetamin 5/325 MG* TAB PO PRN ×4 (03:37→21:38)
[2018-03-20 05:30] LABS: Hematocrit 30 % (35-47); Hemoglobin 10.1 g/dl (12.0-16.0); Mean Platelet Volume 8.4 um3 (7.4-10.4); Platelet Count 253 10^3/ul (150-450)
[2018-03-20 05:36] LABS: INR 1.84 (0.77-1.02)
[2018-03-20] MEDS: oxyCODONE TAB* 5 MG TAB PO PRN ×3 (07:01→17:56)
[2018-03-20] MEDS: Insulin LISPRO* 1 UNITS UNIT SUBCUT SCH ×4 (08:10→21:56)
[2018-03-20] MEDS: Lisinopril TAB* 10 MG PO SCH (08:12)
[2018-03-20] MEDS: Hydrochlorothiazide TAB* 25 MG PO SCH (08:12)
[2018-03-20] MEDS: Docusate CAP* 100 MG PO SCH ×2 (08:12→21:37)
[2018-03-20] MEDS: Vitamin THERAPEUTIC TAB PO SCH (08:12)
--- NOTE | 2018-03-20 09:10 | PN ---
Subjective Date of Service: 03/20/18 Interval History: C/o right knee pain, Denies chest pain or shortness of breath. Denies abd pain , n/v/d. Family History: Unchanged from Admission Social History: Unchanged from Admission Past Medical History: Unchanged from Admission Objective Active Medications: Acetaminophen (Tylenol Tab*) 650 mg PO Q4H PRN PRN Reason: PAIN OR TEMPERATURE Albuterol (Ventolin Hfa Inhaler*) 2 puff INH Q4H PRN PRN Reason: SOB/WHEEZING Cyclobenzaprine HCl (Flexeril Tab*) 5 mg PO TID PRN PRN Reason: SPASMS Dextrose (D50w Syringe 50 Ml*) 12.5 gm IV PUSH .FOR FS < 60 - SS PRN PRN Reason: FS < 60 Diphenhydramine HCl (Benadryl Iv*) 25 mg IV Q6H PRN PRN Reason: itching or insomnia Last Admin: 03/18/18 08:22 Dose: 25 mg Docusate Sodium (Colace Cap*) 100 mg PO BID [facility] Last Admin: 03/20/18 08:12 Dose: 100 mg Enoxaparin Sodium (Lovenox(*)) 40 mg SUBCUT Q24H [facility] Last Admin: 03/19/18 11:49 Dose: 40 mg Hydrochlorothiazide (Hydrodiuril Tab*) 25 mg PO DAILY [facility] Last Admin: 03/20/18 08:12 Dose: 25 mg Insulin Human Lispro (Humalog*) 0 units SUBCUT ACHS [facility] PRN Reason: Protocol Last Admin: 03/20/18 08:10 Dose: 3 units Lactulose (Lactulose*) 30 ml PO Q6H PRN PRN Reason: constipation Lisinopril (Prinivil Tab*) 20 mg PO DAILY [facility] Last Admin: 03/20/18 08:12 Dose: 20 mg Magnesium Hydroxide (Milk Of Magnesia Liq*) 30 ml PO Q6H PRN PRN Reason: constipation Morphine Sulfate (Morphine Vial*) 2 mg IV Q2H PRN PRN Reason: PAIN - UNCONTROLLED Last Admin: 03/18/18 12:30 Dose: 2 mg Multivitamins (Theragran Tab*) 1 tab PO DAILY [facility] Last Admin: 03/20/18 08:12 Dose: 1 tab Ondansetron HCl (Zofran Inj*) 4 mg IV Q6H PRN PRN Reason: nausea Oxycodone HCl (Roxycodone Tab*) 10 mg PO Q4H PRN PRN Reason: PAIN - SEVERE Last Admin: 03/20/18 07:01 Dose: 10 mg Oxycodone/Acetaminophen (Percocet 5/325 Tab*) 2 tab PO Q4H PRN PRN Reason: PAIN - MODERATE TO SEVERE Last Admin: 03/20/18 03:37 Dose: 2 tab Oxycodone/Acetaminophen (Percocet 5/325 Tab*) 1 tab PO Q4H PRN PRN Reason: PAIN - MODERATE Pharmacy Profile Note (Coumadin Daily Reminder*) 0 note FOLLOW UP 1700 [facility] Last Admin: 03/19/18 17:24 Dose: 1 note Vital Signs - 8 hr 03/20/18 03/20/18 03/20/18 02:11 03:37 03:45 Temperature 98.1 F Pulse Rate 74 Respiratory 14 20 19 Rate Blood Pressure 145/66 (mmHg) O2 Sat by Pulse 96 Oximetry 03/20/18 03/20/18 03/20/18 04:17 05:33 07:01 Temperature Pulse Rate Respiratory 14 18 Rate Blood Pressure (mmHg) O2 Sat by Pulse 96 Oximetry 03/20/18 03/20/18 07:42 08:14 Temperature 98.2 F Pulse Rate 73 Respiratory 12 Rate Blood Pressure 141/83 (mmHg) O2 Sat by Pulse 97 97 Oximetry Oxygen Devices in Use Now: Nasal Cannula Appearance: appears comfortable Eyes: No Scleral Icterus Ears/Nose/Mouth/Throat: Clear Oropharnyx, Mucous Membranes Moist Neck: NL Appearance and Movements; NL JVP, Trachea Midline Respiratory: Symmetrical Chest Expansion and Respiratory Effort, Clear to Auscultation Cardiovascular: NL Sounds; No Murmurs; No JVD Abdominal: NL Sounds; No Tenderness; No Distention Extremities: No Clubbing, Cyanosis, - - dressing intact to right knee, mild swelling to right knee Skin: No Rash or Ulcers Neurological: Alert and Oriented x 3, NL Gait Nutrition: Taking PO's Result Diagrams: 03/20/18 05:14 03/18/18 05:19 Assess/Plan/Problems-Billing Assessment: Ms. Zepeda is a 53 y.o female who has a hx of hypertension and DM who presented to the hospital for an elective right knee arthroplasty. - Patient Problems (1) Status post right knee replacement Current Visit: Yes Status: Acute Code(s): Z96.651 - PRESENCE OF RIGHT ARTIFICIAL KNEE JOINT SNOMED Code(s): 590490643 Comment: management per orthopedics PT/OT per orthopedics pain management per orthopedics (2) Hypertension Current Visit: Yes Status: Acute Code(s): I10 - ESSENTIAL (PRIMARY) HYPERTENSION SNOMED Code(s): 33354402 Comment: Will resume lisinopril/HCTZ - SBP 140's - will continue to monitor BP (3) Diabetes Current Visit: Yes Status: Acute Code(s): E11.9 - TYPE 2 DIABETES MELLITUS WITHOUT COMPLICATIONS SNOMED Code(s): 28719598 Comment: BG 172-184 Fingerstick Lispro sliding scale (4) DVT prophylaxis Current Visit: Yes Status: Acute Code(s): ZPL4214 - SNOMED Code(s): 024213853 Comment: As per orthopedics (5) Full code status Current Visit: Yes Status: Acute Code(s): Z78.9 - OTHER SPECIFIED HEALTH STATUS SNOMED Code(s): 786666947 Status and Disposition: inpatient - discharge when cleared by orthopedics
[2018-03-20] MEDS: Enoxaparin(*) 40 MG/0.4 ML SYR SUBCUT SCH (12:14)
--- NOTE | 2018-03-20 12:55 | PN ---
Progress Note - Progress Note Date of Service: 03/20/18 SOAP: Subjective: Pt up walking with PT. She has been compliant with 25% weight bearing. She states that pain continues to improve. Denies CP, SOB, F/C Objective: Dressing C/D/I. Calves soft, nontender. No edema. DP pules 2+. Sensation intact to light touch distally. Vital Signs: Temp Pulse Resp BP Pulse Ox 98.0 F 85 18 116/89 99 03/20/18 12:05 03/20/18 12:05 03/20/18 12:20 03/20/18 12:05 03/20/18 12:05 Laboratory Last Values Hgb 10.1 g/dl (12.0-16.0) L 03/20/18 05:14 Hct 30 % (35-47) L 03/20/18 05:14 Plt Count 253 10^3/ul (150-450) 03/20/18 05:14 MPV 8.4 um3 (7.4-10.4) 03/20/18 05:14 INR (Anticoag Therapy) 1.84 (0.77-1.02) H 03/20/18 05:14 Sodium 135 mmol/L (139-145) L 03/18/18 05:19 Potassium 4.1 mmol/L (3.5-5.0) 03/18/18 05:19 Chloride 101 mmol/L (101-111) 03/18/18 05:19 Carbon Dioxide 31 mmol/L (22-32) 03/18/18 05:19 Anion Gap 3 mmol/L (2-11) 03/18/18 05:19 BUN 9 mg/dL (6-24) 03/18/18 05:19 Creatinine 0.67 mg/dL (0.51-0.95) 03/18/18 05:19 Est GFR ( Amer) 118.9 (>60) 03/18/18 05:19 Est GFR (Non-Af Amer) 92.4 (>60) 03/18/18 05:19 BUN/Creatinine Ratio 13.4 (8-20) 03/18/18 05:19 Glucose 169 mg/dL (70-100) H 03/18/18 05:19 POC Glucose (mg/dL) 145 mg/dL (70-100) H 03/20/18 12:17 Calcium 8.4 mg/dL (8.6-10.3) L 03/18/18 05:19 Assessment: 53 yo female s/p right TKA by Dr. Clinton POD #3 Plan: OOB/PT 25% WB, non aggressive PT, gentle ROM. Knee immobilizer on at all times while resting in bed. Pain control DVT prophylaxis - Coumadin 2mg tonight DC planning - Pt wishes to go home tomorrow with home care
[2018-03-20] MEDS ORDERED: Warfarin TAB(*) 2 MG PO NR (17:00)
[2018-03-21] MEDS: oxyCODONE/Acetamin 5/325 MG* TAB PO PRN ×3 (01:44→10:46)
[2018-03-21 05:31] LABS: Hematocrit 31 % (35-47); Hemoglobin 10.4 g/dl (12.0-16.0); Mean Platelet Volume 8.1 um3 (7.4-10.4); Platelet Count 296 10^3/ul (150-450)
[2018-03-21 05:32] LABS: INR 1.99 (0.77-1.02)
--- NOTE | 2018-03-21 07:41 | PN ---
Progress Note - Progress Note Date of Service: 03/21/18 SOAP: Subjective: 53 y/o female s/p R TKA by Dr. Clinton 03/17/2018 complicated by femoral fracture. Patient did well with PT over the weekend, discussed placement vs returning home, patient feels safe and would prefer returning home. PT cleared. Pain controlled with PO Percocet. much improved from over weekend. VSS, afebrile overnight. Objective: General- Well appearing, NAD, AO Sitting in bed comfortably MSK- RLE- DF/PF +, PT 2+, negative homans sign, Dressing removed incision c/d/i mild erythema noted at proximal incision, no drainage, induration. sutures intact. New dressing placed. knee immobilizer in place. Vital Signs Temp 97.6 F 03/21/18 01:48 Pulse 76 03/21/18 01:48 Resp 20 03/21/18 05:37 BP 140/78 03/21/18 01:48 Pulse Ox 99 03/21/18 01:48 Intake & Output 03/20/18 03/21/18 03/21/18 18:59 06:59 18:59 Intake Total 1620 Output Total 1075 1000 Balance 545 -1000 Intake: Oral 1620 Output: Urine 1075 1000 Other: Estimated Void Small # Voids 2 Assessment: Stable 53 y/o female s/p R TKA by Dr. Clinton 03/17/2018 complicated by femoral fracture. Plan: - DVT prophylaxis- D/C lovenox - INR theraputic. Continue coumadin - Continue PT/ OT - 25% WB, knee immoblizer, non-aggressive PT with flexion to 90 only. - Follow up with Dr. Clinton within 10-14 days - H&H - stable - post-op IV ABX - Completed. - D/C to home today. Acetaminophen (Tylenol Tab*) 650 mg PO Q4H PRN PRN Reason: PAIN OR TEMPERATURE Albuterol (Ventolin Hfa Inhaler*) 2 puff INH Q4H PRN PRN Reason: SOB/WHEEZING Cyclobenzaprine HCl (Flexeril Tab*) 5 mg PO TID PRN PRN Reason: SPASMS Dextrose (D50w Syringe 50 Ml*) 12.5 gm IV PUSH .FOR FS < 60 - SS PRN PRN Reason: FS < 60 Diphenhydramine HCl (Benadryl Iv*) 25 mg IV Q6H PRN PRN Reason: itching or insomnia Last Admin: 03/18/18 08:22 Dose: 25 mg Docusate Sodium (Colace Cap*) 100 mg PO BID [facility] Last Admin: 03/20/18 21:37 Dose: 100 mg Enoxaparin Sodium (Lovenox(*)) 40 mg SUBCUT Q24H [facility] Last Admin: 03/20/18 12:14 Dose: 40 mg Hydrochlorothiazide (Hydrodiuril Tab*) 25 mg PO DAILY [facility] Last Admin: 03/20/18 08:12 Dose: 25 mg Insulin Human Lispro (Humalog*) 0 units SUBCUT ACHS [facility] PRN Reason: Protocol Last Admin: 03/20/18 21:56 Dose: 2 units Lactulose (Lactulose*) 30 ml PO Q6H PRN PRN Reason: constipation Lisinopril (Prinivil Tab*) 20 mg PO DAILY [facility] Last Admin: 03/20/18 08:12 Dose: 20 mg Magnesium Hydroxide (Milk Of Magnesia Liq*) 30 ml PO Q6H PRN PRN Reason: constipation Morphine Sulfate (Morphine Vial*) 2 mg IV Q2H PRN PRN Reason: PAIN - UNCONTROLLED Last Admin: 03/18/18 12:30 Dose: 2 mg Multivitamins (Theragran Tab*) 1 tab PO DAILY [facility] Last Admin: 03/20/18 08:12 Dose: 1 tab Ondansetron HCl (Zofran Inj*) 4 mg IV Q6H PRN PRN Reason: nausea Oxycodone HCl (Roxycodone Tab*) 10 mg PO Q4H PRN PRN Reason: PAIN - SEVERE Last Admin: 03/20/18 17:56 Dose: 10 mg Oxycodone/Acetaminophen (Percocet 5/325 Tab*) 2 tab PO Q4H PRN PRN Reason: PAIN - MODERATE TO SEVERE Last Admin: 03/21/18 05:36 Dose: 2 tab Oxycodone/Acetaminophen (Percocet 5/325 Tab*) 1 tab PO Q4H PRN PRN Reason: PAIN - MODERATE Pharmacy Profile Note (Coumadin Daily Reminder*) 0 note FOLLOW UP 1700 [facility] Last Admin: 03/20/18 17:18 Dose: 1 note
[2018-03-21] MEDS: Vitamin THERAPEUTIC TAB PO SCH (08:24)
[2018-03-21] MEDS: Lisinopril TAB* 10 MG PO SCH (08:24)
[2018-03-21] MEDS: Insulin LISPRO* 1 UNITS UNIT SUBCUT SCH (08:24)
[2018-03-21] MEDS: Hydrochlorothiazide TAB* 25 MG PO SCH (08:25)
[2018-03-21] MEDS: Docusate CAP* 100 MG PO SCH (08:25)
[2018-03-21 11:35] VITALS: BP 144/75
--- NOTE | 2018-03-29 21:55 | DS ---
DISCHARGE SUMMARY: DATE OF ADMISSION: 03/17/18 DATE OF DISCHARGE: 03/21/18 ATTENDING PHYSICIAN: Dr. Frieda Clinton.* (DICTATED BY NII LAWSON) CHIEF COMPLAINT: 1. Right knee pain. 2. Hypertension. 3. Type 2 diabetes. 4. History of hepatitis C. 5. Asthma. 6. History of sleep apnea. 7. Obesity. DISCHARGE DIAGNOSES: 1. Status post right total knee replacement. 2. Hypertension. 3. Diabetes type 2. 4. History of hepatitis C. 5. Asthma. 6. Sleep apnea. 7. Obesity. PROCEDURE: Right total knee replacement. BRIEF HISTORY: Ms. Zepeda is a 53-year-old female with endstage osteoarthritis of her right knee who failed conservative treatment and elected to undergo right total knee arthroplasty with Dr. Frieda Clinton on 03/17/18. HOSPITAL COURSE: The patient was admitted to [facility] on 03/17/18 where she underwent a right total knee arthroplasty by Dr. Frieda Clinton with an estimated blood loss of 300 cc. Postoperatively, the patient was x-rayed in the PACU noted that she had a periprosthetic fracture of the distal femur which was nondisplaced. The patient was made 25% weightbearing on the right lower extremity and placed in a knee immobilizer while in bed. The patient was instructed not to flex greater than 90 degrees. The treatment will be continued as nonoperative unless there was an any displacement of the fracture and she will be followed closely by Dr. Frieda Clinton. The patient's Patel was removed on postoperative day 3 and she was voiding on her own without difficulty. Her pain was controlled with p.o. Percocet. She was having bowel motions. She advanced appropriately with physical therapy and occupational therapy. Her DVT prophylaxis was managed with Lovenox and Coumadin. The patient also reached the therapeutic INR. By postoperative day# 4, the patient orthopedically and medically stable for discharge to go home with home services. PHYSICAL EXAMINATION: General: Well-appearing, in no acute distress. Alert and oriented. Eager for discharge home, sitting in bed comfortably. Musculoskeletal: Right lower extremity with positive dorsiflexion and plantarflexion equal bilaterally with posterior tibial pulses 2+. Negative Homans sign. The dressing was removed. The incision was clean, dry and intact with mild erythema noted at the proximal incision. There was no erythema or induration. Sutures were intact. New dressing was placed. Knee immobilizer was placed. Vital Signs: 97.6, pulse 76, respirations 20, blood pressure 140/ 78, pulse oxygenation is 99% on room air. LABORATORY DATA: On date of discharge include an H and H of 10.4 and 31 with an INR of 1.99. DISCHARGE MEDICATIONS: 1. Tylenol 325 mg one to two tablets every 4 to 6 hours as needed for pain, not to take more than 4000 mg a day. 2. Albuterol 2 puffs p.o. q.4 hours p.r.n. 3. Cyclobenzaprine 5 mg p.o. t.i.d. p.r.n. for muscle spasms. 4. Colace 100 mg p.o. b.i.d. 5. Lisinopril/hydrochlorothiazide 10/25 one tablet p.o. q.a.m. 6. Metformin 500 mg p.o. q.p.m. 7. Percocet 5/325 mg 1 tablet every 4 to 6 hours as needed for pain. 8. Coumadin 2 mg tablets 1 to 3 tablets p.o. daily at 5 p.m. per physician's instruction. CONDITION ON DISCHARGE: Stable. DISCHARGE INSTRUCTIONS: The patient is a 53-year-old female status post a right total knee arthroplasty, which was complicated by a periprosthetic nondisplaced fracture of the femur. She will remain 25% weightbearing on the right lower extremity and will not flex her leg greater than 90 degrees. She will follow up with Dr. Clinton closely with serial x-rays to ensure no displacement. She is okay to shower. She will have a knee immobilizer on at all times while resting. She will have the visiting home nurses as well as home physical therapy. She will continue to take Coumadin for DVT prophylaxis, will take 2 mg at 03/21/18; 4 mg on 03/22/18; 2 mg on 03/23/18 with an INR draw on 03/24/18. She will take Percocet as needed every 4 to 6 hours for pain control. She will follow with Dr. Clinton in approximately 10 days for incision check and suture removal. She was instructed to go immediately to the ER if she develops chest pain, or shortness of breath. She will contact the office with any increased pain, swelling, erythema, or drainage around the wound site. NII LAWSON [id number]/CPS #: [id number] MTDD
== END 2018-03-21 12:15 | disposition home health service (06) | DRG 470 ==
LOC: AA 06:38 → SSU 12:52
PROVIDERS: ADMIT Orthopaedic Surgery Adult Reconstructive Orthopaedic Surgery; ATTEND Orthopaedic Surgery Adult Reconstructive Orthopaedic Surgery
PROC: 0SRC069 Replacement of Right Knee Joint with Oxidized Zirconium on Polyethylene Synthetic Substitute, Cemented, Open Approach (ICD-10-PCS; principal; 2018-03-17 08:00)
DX: M17.11 Unilateral primary osteoarthritis, right knee (principal); M97.11XA Periprosthetic fracture around internal prosthetic right knee joint, initial encounter; M96.661 Fracture of femur following insertion of orthopedic implant, joint prosthesis, or bone plate, right leg; Z68.41 Body mass index [BMI] 40.0-44.9, adult; I10 Essential (primary) hypertension; E11.9 Type 2 diabetes mellitus without complications; M25.461 Effusion, right knee; E66.9 Obesity, unspecified; M25.761 Osteophyte, right knee; X58.XXXA Exposure to other specified factors, initial encounter; Y92.239 Unspecified place in hospital as the place of occurrence of the external cause; Z86.19 Personal history of other infectious and parasitic diseases; J45.909 Unspecified asthma, uncomplicated; G47.30 Sleep apnea, unspecified; Z90.49 Acquired absence of other specified parts of digestive tract; Z82.49 Family history of ischemic heart disease and other diseases of the circulatory system; Z82.5 Family history of asthma and other chronic lower respiratory diseases; Z79.84 Long term (current) use of oral hypoglycemic drugs; Z72.89 Other problems related to lifestyle
CPT/HCPCS: 36415; 80048; 85014; 85018; 85049; 85610; 88305; 88311; A9270-GY; C1776; J0690; J1170; J1200; J1650; J1885; J2001; J2250; J2270; J2300; J2405; J2704; J2765; J2795; J3010

== ENCOUNTER 2019-06-13 16:57 | Emergency (ER) | payer BC ==
[2019-06-13 17:17] VITALS: BP 157/79
[2019-06-13] MEDS ORDERED: Albuterol 2.5 MG/3 ML NEB.SOL* (0.083%) INH ONE (17:21)
[2019-06-13] MEDS ORDERED: predniSONE TAB* 20 MG PO ONE (17:21)
--- NOTE | 2019-06-13 17:22 | UC ---
UC General HPI - HPI Summary HPI Summary: PT C/O 5 DAY HX COUGH, CONGESTION, SOB AND WHEEZING. NO FEVER OR CHILLS. NO CHEST PAIN. HX ASTHMA BUT NO LONGER REQUIRES ADVAIR. - History of Current Complaint Stated Complaint: ST Time Seen by Provider: 06/13/19 17:16 Hx Obtained From: Patient Hx Last Menstrual Period: LAST WEEK Onset/Duration: Gradual Onset Timing: Constant Pain Intensity: 4 Aggravating: LYING FLAT - Allergy/Home Medications Allergies/Adverse Reactions: Allergies Allergy/AdvReac Type Severity Reaction Status Date / Time No Known Allergies Allergy Verified 06/13/19 17:06 Home Medications: Home Medications Atorvastatin* [Lipitor*] 10 mg PO BEDTIME 06/13/19 [History Confirmed 06/13/19] Glimepiride 4 mg PO DAILY 06/13/19 [History Confirmed 06/13/19] Losartan/Hydrochlorothiazide [Losartan Potassium/Hydroc 100-12.5 mg] 1 tab PO DAILY 06/13/19 [History Confirmed 06/13/19] Meloxicam [Mobic] 15 mg PO DAILY 06/13/19 [History Confirmed 06/13/19] PMH/Surg Hx/FS Hx/Imm Hx Endocrine History: Diabetes, Dyslipidemia Cardiovascular History: Hypertension Respiratory History: Asthma - Surgical History Surgical History: Yes Surgery Procedure, Year, and Place: CHOLECYSTECTOMY. RIGHT KNEE SX-TORN ACL/ [facility]. BACK DISKECTOMY. 3 C-SECT. RIGHT TKR - Family History Known Family History: Positive: Non-Contributory - Social History Alcohol Use: Occasionally Substance Use Type: None Smoking Status (MU): Never Smoked Tobacco - Immunization History Most Recent Influenza Vaccination: 2017 Most Recent Pneumonia Vaccination: 2016 Review of Systems All Other Systems Reviewed And Are Negative: Yes Constitutional: Negative: Fever, Chills ENT: Positive: Sore Throat - FROM COUGHING. Negative: Ear Ache, Sinus Congestion Respiratory: Positive: Shortness Of Breath, Cough Cardiovascular: Negative: Palpitations, Chest Pain Physical Exam Triage Information Reviewed: Yes Appearance: Well-Appearing Vital Signs: Initial Vital Signs Temp 98.2 F 06/13/19 17:11 Pulse 82 06/13/19 17:11 Resp 16 06/13/19 17:11 BP 157/79 06/13/19 17:11 Pulse Ox 99 06/13/19 17:11 Vital Signs Reviewed: Yes Eyes: Positive: Conjunctiva Clear ENT: Positive: Pharynx normal, TMs normal. Negative: Nasal congestion, Nasal drainage Neck: Positive: Supple, Nontender, No Lymphadenopathy Respiratory: Positive: No respiratory distress, Decreased breath sounds, Wheezing - EXPIRATORY. Negative: Crackles, Rhonchi Cardiovascular: Positive: RRR, No Murmur Abdomen Description: Positive: Nontender Musculoskeletal: Positive: ROM Intact, No Edema Neurological: Positive: Alert Psychological: Positive: Age Appropriate Behavior Skin Exam: Normal Re-Evaluation - Re-Evaluation First Eval Re-Evaluation Time: 17:44 Change: Improved - much better aeration, wheezing resolved and less cough. Course/Dx - Diagnoses Provider Diagnosis: Asthma Discharge - Sign-Out/Discharge Documenting (check all that apply): Patient Departure All imaging exams completed and their final reports reviewed: No Studies - Discharge Plan Condition: Stable Disposition: HOME Prescriptions: Albuterol HFA INHALER* [Ventolin HFA Inhaler*] 2 puff INH Q6H #1 mdi Azithromycin TAB* [Zithromax TAB (Z-EOLINA) 250 mg #6 tabs] 2 tab PO .TODAY, THEN 1 DAILY #1 eloina predniSONE TAB* [Deltasone 20 MG TAB*] 40 mg PO DAILY 4 Days #8 tab Patient Education Materials: Asthma (ED) Referrals: Samira Monae PA [Primary Care Provider] - 7 Days - Billing Disposition and Condition Condition: STABLE Disposition: Home
== END 2019-06-13 17:54 | disposition home or self-care (01) ==
LOC: UCCORT 16:57
DX: J45.909 Unspecified asthma, uncomplicated (principal); E11.9 Type 2 diabetes mellitus without complications; Z79.84 Long term (current) use of oral hypoglycemic drugs; E78.5 Hyperlipidemia, unspecified
CPT/HCPCS: 99212; G0463; J7512